=== PATIENT | male | born 1935 | race African-American/Black ===

== ENCOUNTER → 2017-06-30 | Outpatient (CLI) | payer MEDICARE ==
[~2017-06-30] MED LIST: ACTOS30 MG PO; AUGMENTIN 875 M1 TAB PO; CARTIA XT120 MG PO; CYCLOBENZAPRINE10 MG PO; DILTIAZEM CD120 MG PO; DILTIAZEM HCL120 M3 PO; DILTIAZEM120 MG PO; FINASTERIDE5 MG PO; HYDROCODONE BIT1 T11 PO; JALYN PO; JANUVIA50 MG PO; KEFLEX500 MG PO; LEVOTHYROXIN0.075 MG PO; LIPITOR40 MG PO; LISINOPRIL5 MG PO; MECLIZINE25 MG PO; OMEPRAZOLE DR20 MG PO; OMEPRAZOLE20 MG PO; OMEPRAZOLE40 MG PO; OSCAL,OYSTER S500 MG PO; OYSTER SHELL CA1 TA5 PO; PLAVIX75 MG PO; POTASSIUM CHLOR8 MEQ PO; PRILOSEC20 MG PO; PROSCAR5 MG PO; ROBITUSSIN AC 110 ML PO; SIMVASTATIN80 MG PO; SYNTHROID,LEVO88 MCG PO; TRAMADOL HYDROC50 MG PO; TRAMADOL50 MG PO; ULTRAM50 MG PO; VICODIN 5/500 505 MG PO; ZANTAC150 MG PO; ZETIA10 MG PO; [UNRECOGNIZED DRUG - REMARK]
== END | disposition home or self-care (01) ==
LOC: RAD 10:26
DX: J44.9 Chronic obstructive pulmonary disease, unspecified (principal); I25.10 Atherosclerotic heart disease of native coronary artery without angina pectoris; K21.9 Gastro-esophageal reflux disease without esophagitis; E11.9 Type 2 diabetes mellitus without complications

== ENCOUNTER → 2017-07-10 | Outpatient (CLI) | payer MEDICARE | END | disposition home or self-care (01) | LOC: RAD 07:43 | DX: R13.13 Dysphagia, pharyngeal phase (principal) ==

== ENCOUNTER 2017-12-22 11:27 | Inpatient (IN) | payer MEDICARE ==
[~2017-12-22] VITALS: Ht 180.3 cm; Wt 77.2 kg
--- NOTE | ~2017-12-22 | CON ---
[place], [place] REPORT OF CONSULTATION NAME: REILLY LAUREN JR UNIT #: [id number] ROOM: 426 DOCTOR: MARCIN CASTRO MD BIRTHDATE: [birth year] DOS: 12/24/2017 PULMONARY CONSULTATION, EVALUATION, AND INGOT PASSER PHYSICIAN: Dr. Oliverio Andres. REASON FOR CONSULTATION: Assess the patient's current abnormal finding CT scan of chest and shortness of breath. HISTORY OF PRESENT ILLNESS: The patient independently seen and examined, [id number] encounter today for this consultation. The medical records were reviewed. All the imaging studies were also personally reviewed as well. Assessment and management was personally completed for today's visit. Note done by the medical reimbursement specialist was approved as well. An 82-year-old white man who presented to the Emergency Room as he wanted to get checked out as the patient was complaining of symptoms of shortness of breath after acute cold symptoms for the past few days. The symptoms have been noted progressive and nonresolving. The patient does have mild cough without any sputum expectoration and complaining of symptoms of shortness of breath with exertion. Denies symptoms of chest pain with that. Denied symptoms of fever or chills or wheezing. The patient has been assessed in the Emergency Room and has been hospitalized under care of Dr. Oliverio Andres. REVIEW OF SYSTEMS: CONSTITUTIONAL SYMPTOMS: The patient was denying any symptoms of fever or chills at home. EYES: Denies any burning in the eyes, redness or tenderness or discharge. EARS, NOSE, THROAT SYMPTOMS: Denies sore throat, hoarseness, otalgia, postnasal drainage or epistaxis. CARDIOVASCULAR SYSTEM: No anginal pain, edema, pain in lower extremities, symptoms of orthopnea. GASTROINTESTINAL: Dysphagia, nausea, vomiting, diarrhea, abdominal pain, hematemesis, melena, hematochezia. SKIN: No abnormal lesions or rashes. MUSCULOSKELETAL: No acute joint pain, redness, or tenderness. SKIN: Denies lesions or rashes. CENTRAL NERVOUS SYSTEM: Denies symptoms of seizures, history of migraines or tingling sensation of the extremities. Remaining systems were reviewed. They were noted all negative. PAST MEDICAL HISTORY: 1. Coronary artery disease. 2. Chronic kidney disease stage 3 reported. 3. Type 2 diabetes mellitus. 4. Essential hypertension. 5. Hyperlipidemia. 6. Hypothyroidism. 7. Gastroesophageal reflux. [place], [place] REPORT OF CON[facility]ULTATION [id number] UN[facility] #: [id number] ROOM: 426 DOCTOR: MARCIN CASTRO MD BIRTHDATE: [birth year] SOCIAL HISTORY: The patient noted nonsmoker lifetime. History of alcohol use, illicit drug use. 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 FAMILY HISTORY: His father at age of 60 plus years old, information was not known to cause . Mother , elderly at the age of 9090 years old. MEDICATIONS: From home were listed as use of Norvasc, aspirin, Lipitor, Os-Faisal, finasteride, Vicodin, levothyroxine, Tradjenta, Claritin, nitroglycerin, omeprazole, Senokot and others. DRUG ALLERGY HISTORY: The patient noted with no known drug allergies. PHYSICAL EXAMINATION: GENERAL: This is an 82-year-old white male who has been noted currently comfortably sitting on the bed, noted without any acute distress. Height of 5 feet 11 inches, weight of 170 pounds, BMI 23.7. VITAL SIGNS: For the patient recorded normal temperature, respiratory rate 18-16, heart rate of 86-62, blood pressure 134/70-116/88. The pulse oxygen saturation noted 96% saturation with the nasal cannula. HEAD, EYES, EARS, NOSE, AND THROAT: Shows head was atraumatic. Eyes nonicterus. NECK: Supple. CARDIOVASCULAR SYSTEM: S1, S2 audible. LUNGS: Noted without any wheezing or crackles at the present time. ABDOMEN: Soft, flat, nontender, bowel sounds present. EXTREMITIES: No acute edema. There was no clubbing or cyanosis noted. VISIBLE SKIN: No lesions or rashes. MUSCULOSKELETAL: Without any gross deformities. CENTRAL NERVOUS SYSTEM: Cranial nerves 2-12 intact. No focal deficit. LABORATORY AND DIAGNOSTIC DATA: Lactic acid on 12/22/2017 were normal. CBC on admission was essentially noted as normal. PT/PTT were noted normal on 12/22/2017. CMP on admission, BUN 28, creatinine 2.09. Remaining electrolytes and the CK-MB, troponin normal. Blood culture done on the 6th showed no bacterial growth. The renal function panel today was noted BUN 24, creatinine 1.72, glucose of 96. The chest x-ray that was done on admission was noted without any acute visible abnormalities. Previous x-rays reviewed dating back as 2003 noted without any acute pulmonary abnormalities. CT scan of chest was reviewed, shows early honeycombing. The patient was noted in the mid and lower portion of the lungs in the periphery with a 3 mm nodule was noted in the left upper lobe. IMPRESSION: 1. The patient will be currently admitted to the hospital noted with the current symptoms of shortness of breath with acute cold symptoms started initially, at this time does not have any ongoing acute pulmonary disease causing current symptom. Possibility of interstitial lung disease, honeycombing would be considered in the differential diagnosis and require further assessment [place], [place] REPORT OF CONSULTATION NAME: REILLY LAUREN JR UNIT #: [id number] ROOM: 426 DOCTOR: NICK CHAPMAN MD,MARCIN BIRTHDATE: [birth year] as an outpatient assessment. 2. Medication use for allergic rhinitis were also noted. Incidental finding of a 3 mm nodule of no clinical significance in the left upper lobe as well. 3. History of coronary artery disease already being assessed by the Cardiology Service has not noted with any ongoing acute cardiac illness, which required any further attention. 4. Resolution acute on chronic injury noted and may be related to the prerenal in origin with improvement in creatinine noted, but 2.09 to 1.7. 5. History of type 2 diabetes mellitus. PLAN OF TREATMENT: From the pulmonary standpoint, no acute intervention will be needed or any suggestion medication to be started on this hospitalization. Outpatient assessment will be recommended prior to making any further suggestion and treatment planning for the current interstitial lung disease. Other supportive therapy, plan of management and care plan. MARCIN ROMERO MD CM:CONSTR:REPORT OF CONSULTATION 1155 12/24/17 0308 interface
--- NOTE | ~2017-12-22 | CON ---
[place], [place] REPORT OF CONSULTATION NAME[id number] UNIT #: [id number] ROOM: 426 DOCTOR: AMANDA SCHULTZ DO BIRTHDATE: [birth year] DOS: 12/24/2017 PULMONOLOGY CONSULTATION REQUEST REASON FOR CONSULTATION: Shortness of breath upon walking with a chest CT with lung nodule. HISTORY OF PRESENT ILLNESS: The patient is an 82-year-old male with progressively worsening shortness of breath for around 4-5 weeks. The patient states that he gets short of breath when walking any amount of time. The patient reports that he had never had this problem before and decided to come to the hospital to get it checked out. The patient denies any other symptoms including chest pain, nausea, vomiting, diarrhea, constipation, urinary complaints, lower extremity edema, or any cough or wheezing. The patient was seen and evaluated in the ER initially and had a chest x-ray that showed cardiomegaly with emphysematous changes, although the patient denies any history of smoking. The patient was admitted for further workup. The patient also while inpatient had an echo and stress test performed. PAST MEDICAL HISTORY: The patient has a past medical history of coronary artery disease, chronic kidney disease stage 3, diabetes mellitus type 2, hypertension, GERD, hyperlipidemia, hypothyroidism, myocardial infarction. PAST SURGICAL PROBLEMS: History of cholecystectomy. SOCIAL HISTORY: The patient does not smoke, drink or use recreational drugs. 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 FAMILY HISTORY: Father is at age 60, unknown cause. Mother is also , unsure of age and cause. ALLERGIES: No known drug allergies. CURRENT MEDICATIONS: Amlodipine 10 mg daily, aspirin 81 mg daily, atorvastatin 40 mg daily, calcium carbonate 500 mg 3 times a day, cromolyn sodium nasal allergy spray twice daily, Proscar 5 mg daily, hydrocodone with acetaminophen 325/5 one tablet q. 6 hours, Synthroid 125 mcg daily, Tradjenta 5 mg daily, Claritin 10 mg daily, magnesium oxide 400 mg daily, Nitrostat 0.4 mg sublingual p.r.n. chest pain, omeprazole 20 mg b.i.d., Senokot 8.6 mg daily. REVIEW OF SYSTEMS: GENERAL: The patient denies fevers, chills, weight loss, or weight gain. HEENT: The patient denies any vision changes, trouble swallowing, nasal discharge, or any ear pain or ear discharge. CARDIOVASCULAR: The patient denies chest pain, palpitations, or lower extremity edema. Denies diaphoresis. RESPIRATORY: The patient reports shortness of breath and dyspnea on exertion. Denies any cough, hemoptysis, wheezing, or any other respiratory symptoms. GASTROINTESTINAL: Denies abdominal pain, nausea, vomiting, diarrhea, [place], [place] REPORT OF CONSULTATION NAME: REILLY LAUREN JR UNIT #: [id number] ROOM: 426 DOCTOR: AMANDA SCHULTZ DO BIRTHDATE: [birth year] constipation, or any blood in the stool. GENITOURINARY: The patient denies dysuria, hematuria, frequency or urgency. NEUROLOGIC: The patient denies lightheadedness, dizziness or confusion. PSYCHIATRIC: The patient denies depression or anxiety. ENDOCRINE: The patient denies any heat or cold intolerance. SKIN: The patient denies any new rashes, lesions, or ulcers. PHYSICAL EXAMINATION: VITAL SIGNS: Temperature of 98.0, pulse of 86, respiratory rate 18, blood pressure 116/88, and the patient is 97% on room air. GENERAL APPEARANCE: Awake, alert, in no acute distress, responsive, cooperative. HEAD: Normocephalic, atraumatic. EYES: PERRLA. No ulcerations or drainage. ENT: No lesions, no scars, no masses. NECK: Without lesions or masses. Supple. HEART: Regular rate and rhythm with S4 gallop. No edema in the lower extremities. LUNGS: Normal breath sounds bilaterally. ABDOMEN: Soft, bowel sounds present, nontender, nondistended. EXTREMITIES: No clubbing, cyanosis, erythema, or edema. NEUROLOGIC: Intact without focal neurological deficits. Normal mood and affect. SKIN: Warm and dry. No acute rashes, lesions, or ulcerations. LABORATORY TESTS: CBC showed mild anemia with hemoglobin of 12.4, hematocrit of 39.8, and mild thrombocytopenia with platelet count of 128. Coagulation panel within normal limits and BMP revealed chronic kidney disease with GFR of approximately 46. DIAGNOSTIC IMAGING: Chest x-ray in the ER showed stable cardiomegaly, emphysematous pulmonary configuration of COPD, stable chest. Chest CT revealed a 3 mm ground glass noncalcified nodule in the left upper lobe with subpleural fibrosis and early home honeycombing at the lung bases bilaterally. The patient also had a stress test, which was within normal limits. ASSESSMENT: 1. Dyspnea on exertion. 2. Hypertension. 3. Hypothyroidism. 4. Hyperlipidemia. 5. Coronary artery disease. 6. Acid reflux. 7. Chronic kidney disease. 8. Diabetes mellitus. TREATMENT PLAN: The patient was admitted with dyspnea on exertion. Cardiac causes have been ruled out at this time. The patient would benefit from outpatient evaluation of early COPD/honeycombing of the lower parts of the lung, found on CT. Lab work is insignificant for any signs of infection at this time. [place], [place] REPORT OF CONSULTATION NAME: REILLY LAUREN JR UNIT #: [id number] ROOM: 426 DOCTOR: AMANDA SCHULTZ DO BIRTHDATE: [birth year] The patient can be scheduled for followup with Dr. Romero within the next coming month. The patient is stable for discharge from Pulmonology standpoint. Amanda Schultz DO MARCIN ROMERO MD CM:CONSTR:REPORT OF CONSULTATION 1124 01/01/18 0803 interface
--- NOTE | ~2017-12-22 | EKG ---
[place], [place] ELECTROCARDIOGRAM REPORT NAME: REILLY LAUREN JR UNIT #: [id number] ROOM: 426 DOCTOR: YULISA DRAFT REPORT BIRTHDATE: [birth year] [facility] Test Date: 2017-12-22 Test Time: 11:46:30 Pat Name: REILLY LAUERN Department: Room: 426 Gender: M Proof Technician: Mer Jeff : [id number] Requested By: CLARIBEL CASTILLO Order Number: [id number] Reading MD: Marlen Barreto MD Measurements Intervals [place] Rate: 95 P: 20 IN: 181 QRS: -61 QRSD: 108 T: 63 QT: 374 QTc: 470 Interpretive Statements Sinus rhythm Multiple ventricular premature complexes Probable left atrial enlargement Left anterior fascicular block Abnormal R-wave progression, late transition Left ventricular hypertrophy Minimal ST elevation, lateral leads Electronically Signed On 12-24-2017 14:28:42 PST by Marlen Barreto MD CM:EKGRPT:ELECTROCARDIOGRAM REPORT [id number] CLARIBEL MIGUEL DRAFT REPORT CLARIBEL CASTILLO DO
[2017-12-22 11:29] VITALS: BP 127/87
[2017-12-22 12:08] LABS: BASO % 0.3 % (0.0-1.0); EOS # 0.1 10*3/uL (0.0-0.4); HEMATOCRIT 41.4 % (42.0-52.0); LYMPH # 2.3 10*3/uL (1.3-4.4); LYMPH % 39.2 % (27.0-41.0); MEAN CELL VOLUME 83.5 fl (80.0-94.0); MEAN CORPUSCULAR HGB 26.2 pg (27.0-31.0); MEAN CORPUSCULAR HGB CONC 31.4 g/dl (33.0-37.0); MEAN PLATELET VOLUME 11.5 fl (9.6-12.3); MONO # 0.6 10*3/uL (0.1-1.0); MONO % 9.7 % (3.0-9.0); NEUT # 2.9 10*3/uL (2.3-7.9); NEUT % 48.6 % (47.0-73.0); PLATELET COUNT AUTOMATED 156 10*3/uL (130-400); RED BLOOD COUNT 4.96 10*6/uL (4.50-5.90); RED CELL DISTRI WIDTH 15.8 % (0-14.5); WHITE BLOOD COUNT 5.9 10*3/uL (4.8-10.8)
[2017-12-22 12:17] LABS: ACT PARTIAL THROMBO TIME 28.7 SECONDS (20.8-31.5); INTERNATIONAL NORM RATIO 1.1 (2.0-3.5)
[2017-12-22 12:23] LABS: ALBUMIN 3.5 gm/dl (3.1-4.5); ALKALINE PHOSPHATASE 68 U/L (45-117); BUN 28 mg/dl (7-24); CHLORIDE 109 mmol/L (98-107); CREATININE 2.09 mg/dL (0.70-1.30); LIPASE 377 U/L (73-393); POTASSIUM 4.1 mmol/L (3.5-5.1); SGOT/AST 25 IU/L (3-35); SGPT/ALT 24 U/L (12-78); SODIUM 139 mmol/L (136-145); TOTAL PROTEIN 7.7 gm/dL (6.4-8.2)
[2017-12-22 12:24] LABS: TROPONIN I < 0.015 ng/ml (<0.045)
[2017-12-22 13:20] LABS: BILIRUBIN NEGATIVE (NEGATIVE); BLOOD NEGATIVE (NEGATIVE); CLARITY CLEAR (CLEAR); COLOR YELLOW (YELLOW); GLUCOSE NEGATIVE (NEGATIVE); KETONE NEGATIVE (NEGATIVE); LEUKO ESTERASE NEGATIVE (NEGATIVE); NITRITE NEGATIVE (NEGATIVE); PH 5.5 (5.0-9.0); UROBILINOGEN 0.2 E.U./dl (0.2-1.0)
[2017-12-22 13:30] LABS: EPITHELIAL CELLS 0-2; MUCOUS 1+; RBC 0-2 rbc/hpf (0-2)
[2017-12-22 14:11] VITALS: BP 150/84
[2017-12-22 14:35] VITALS: BP 128/76
[2017-12-22] MEDS ORDERED: Oscal,Oyster S500 MG PO (15:58)
[2017-12-22 16:00] VITALS: BP 154/83
[2017-12-22] MEDS ORDERED: SENOKOT PO (16:00)
[2017-12-22] MEDS ORDERED: MAG-OXIDE200 MG PO (16:02)
[2017-12-22] MEDS ORDERED: ASPIR LOW81 MG PO (16:02)
[2017-12-22] MEDS ORDERED: TRAD5TAB1 PO (16:04)
[2017-12-22] MEDS ORDERED: NASAL ALLERGY S13 ML NAS (16:05)
[2017-12-22] MEDS ORDERED: SYNTHROID,LEV125 MCG PO (16:06)
[2017-12-22] MEDS ORDERED: CLARITIN10 MG PO (16:06)
[2017-12-22] MEDS ORDERED: NITROSTAT0.4 MG SL (16:08)
[2017-12-22] MEDS ORDERED: NORVASC10 MG PO (16:12)
[2017-12-22 20:00] VITALS: BP 147/66
[2017-12-23] VITALS: BP 134/61
[2017-12-23 06:27] LABS: BASO % 0.4 % (0.0-1.0); EOS # 0.2 10*3/uL (0.0-0.4); EOS % 3.4 % (1.0-4.0); HEMATOCRIT 39.8 % (42.0-52.0); HEMOGLOBIN 12.4 g/dl (14.0-18.0); LYMPH % 41.1 % (27.0-41.0); MEAN CELL VOLUME 84.1 fl (80.0-94.0); MEAN CORPUSCULAR HGB 26.2 pg (27.0-31.0); MEAN CORPUSCULAR HGB CONC 31.2 g/dl (33.0-37.0); MEAN PLATELET VOLUME 11.9 fl (9.6-12.3); MONO # 0.5 10*3/uL (0.1-1.0); MONO % 9.6 % (3.0-9.0); NEUT # 2.2 10*3/uL (2.3-7.9); NEUT % 45.3 % (47.0-73.0); PLATELET COUNT AUTOMATED 128 10*3/uL (130-400); RED BLOOD COUNT 4.73 10*6/uL (4.50-5.90); RED CELL DISTRI WIDTH 15.8 % (0-14.5); WHITE BLOOD COUNT 4.8 10*3/uL (4.8-10.8)
[2017-12-23 06:45] LABS: ALBUMIN 3.3 gm/dl (3.1-4.5); CREATININE 1.65 mg/dL (0.70-1.30); FREE T4 1.95 ng/dl (0.76-1.46); POTASSIUM 3.8 mmol/L (3.5-5.1); TOTAL PROTEIN 7.3 gm/dL (6.4-8.2)
[2017-12-23 06:50] LABS: THYROID STIM HORMONE (HS) 0.005 uIU/ml (0.358-4.75)
[2017-12-23 08:00] VITALS: BP 140/80
[2017-12-23 10:34] LABS: VITAMIN D, 25-HYDROXY 30.4 ng/mL (30-100)
[2017-12-23 12:00] VITALS: BP 129/72
[2017-12-23 12:11] LABS: URINE CREATININE RANDOM 45.3 mg/dL
[2017-12-23 16:00] VITALS: BP 139/64
[2017-12-23 20:00] VITALS: BP 122/56
[2017-12-24] VITALS: BP 134/73
[2017-12-24 06:35] LABS: ALBUMIN 3.4 gm/dl (3.1-4.5); CREATININE 1.72 mg/dL (0.70-1.30); PHOSPHOROUS 3.4 mg/dL (2.5-4.9); POTASSIUM 3.8 mmol/L (3.5-5.1)
[2017-12-24 08:00] VITALS: BP 116/88
[2017-12-24 12:00] VITALS: BP 119/65
[2017-12-24] MEDS ORDERED: SYNTHROID,LEVO75 MCG PO (14:46)
[2017-12-25 10:10] LABS: CREATININE,URINE 31.8 mg/dL (Not Estab.); MICRO ALBUMIN/CRE RATIO 266.4 (0.0-30.0)
== END 2017-12-24 15:22 | disposition home or self-care (01) | DRG 684 ==
LOC: ED 11:27 → 4E 13:31 → EDHOLD 13:31 → 4E 14:02
PROVIDERS: Emergency Medicine; Internal Medicine; Internal Medicine Nephrology
PROC: 4A02XM4 Measurement of Cardiac Total Activity, External Approach (ICD-10-PCS; principal; 2017-12-23)
PROC: 3E073KZ Introduction of Other Diagnostic Substance into Coronary Artery, Percutaneous Approach (ICD-10-PCS; principal; 2017-12-23)
DX: N17.9 Acute kidney failure, unspecified (principal); J84.10 Pulmonary fibrosis, unspecified; N25.81 Secondary hyperparathyroidism of renal origin; I25.10 Atherosclerotic heart disease of native coronary artery without angina pectoris; E03.9 Hypothyroidism, unspecified; E78.5 Hyperlipidemia, unspecified; I13.10 Hypertensive heart and chronic kidney disease without heart failure, with stage 1 through stage 4 chronic kidney disease, or unspecified chronic kidney disease; K21.9 Gastro-esophageal reflux disease without esophagitis; E11.22 Type 2 diabetes mellitus with diabetic chronic kidney disease; J30.9 Allergic rhinitis, unspecified; I27.20 Pulmonary hypertension, unspecified; N18.3 Chronic kidney disease, stage 3 (moderate); N40.0 Benign prostatic hyperplasia without lower urinary tract symptoms; D64.9 Anemia, unspecified; R91.1 Solitary pulmonary nodule; G89.29 Other chronic pain; M54.9 Dorsalgia, unspecified; I25.2 Old myocardial infarction; Z90.49 Acquired absence of other specified parts of digestive tract; Z79.82 Long term (current) use of aspirin; Z79.899 Other long term (current) drug therapy

== ENCOUNTER → 2018-02-12 | Day surgery (SDC) | payer MEDICARE ==
[~2018-02-12] VITALS: Ht 180.3 cm; Wt 78.9 kg
[~2018-02-12] MED LIST changes: +ASPIR LOW81 MG PO; +CLARITIN10 MG PO; +MAG-OXIDE200 MG PO; +NASAL ALLERGY S13 ML NAS; +NITROSTAT0.4 MG SL; +NORVASC10 MG PO; +Oscal,Oyster S500 MG PO; +SENOKOT PO; +SYNTHROID,LEV125 MCG PO; +SYNTHROID,LEVO75 MCG PO; +TRAD5TAB1 PO
--- NOTE | ~2018-02-12 | O ---
[place], [place] OPERATIVE NOTE NAME: REILLY LAUREN JR UNIT #: [id number] ROOM: DOCTOR: JANIE WHITESIDE MD BIRTHDATE: [birth year] DOS: 02/12/2018 GASTROENDOSCOPIC REPORT HISTORY OF PRESENT ILLNESS: An 82-year-old patient who has presented with chief complaint of dysphagia, undergoing investigation. ALLERGIES: No known medication. FAMILY HISTORY: Noncontributory. PAST SURGICAL HISTORY: Noncontributory. PAST MEDICAL HISTORY: Hypertension, hypercholesterolemia, hypothyroidism, diabetes. PROCEDURE: Today's procedure part of investigation is panendoscopy plus esophageal balloon dilation to size 18 and gastritis, biopsy. PREMEDICATION: Propofol. SCOPE: Olympus forward-viewing gastroscope Q10 video. REPORT: After putting the patient in left lateral position and application of lubricant to the scope, the scope was introduced. Thereafter, under direct visualization, advanced through the length of esophagus without difficulty. Benign stricture of esophagus was noticed. Gastric pouch was entered. Gastritis identified. Antral biopsy obtained. Duodenal bulb, second and third part within normal limits. Scope was withdrawn back to the mid gastric pouch. Balloon size 18 was used and esophagus distal and upper were both dilated to size 18. The patient extubated, tolerated the procedure well. IMPRESSION: Benign esophageal stricture, status post balloon dilation to size 18, gastritis. He is going to start his medication back and his regular diet. ACTIVITY: Ad caryl. FOLLOWUP: Routinely with you in office and in 2 weeks with us in GI Clinic. [place], [place] OPERATIVE NOTE NAME: REILLY LAUREN JR UNIT #: [id number] ROOM: DOCTOR: JANIE WHITESIDE MD BIRTHDATE: [birth year] JANIE WHITESIDE MD CM:OPRECORD:OPERATIVE NOTE [id number] [id number] JANIE WHITESIDE MD 02/24/18 0723 interface
[2018-02-12 12:07] VITALS: BP 160/91
[2018-02-12 13:48] VITALS: BP 130/79
[2018-02-12 14:04] VITALS: BP 141/68
[2018-02-12 14:20] VITALS: BP 140/70
== END | disposition home or self-care (01) ==
LOC: SDC 02-08 09:30
DX: K22.2 Esophageal obstruction (principal); K29.50 Unspecified chronic gastritis without bleeding; I10 Essential (primary) hypertension; E78.00 Pure hypercholesterolemia, unspecified; E03.9 Hypothyroidism, unspecified; E11.9 Type 2 diabetes mellitus without complications; K21.9 Gastro-esophageal reflux disease without esophagitis; I25.2 Old myocardial infarction; I25.10 Atherosclerotic heart disease of native coronary artery without angina pectoris; Z90.49 Acquired absence of other specified parts of digestive tract; Z98.890 Other specified postprocedural states; Z87.442 Personal history of urinary calculi; Z79.82 Long term (current) use of aspirin; Z79.899 Other long term (current) drug therapy; Z82.49 Family history of ischemic heart disease and other diseases of the circulatory system

== ENCOUNTER → 2018-04-16 | Outpatient (CLI) | payer MEDICARE | END | disposition home or self-care (01) | LOC: US 13:32 | DX: N28.1 Cyst of kidney, acquired (principal); N18.3 Chronic kidney disease, stage 3 (moderate) ==

== ENCOUNTER → 2018-10-21 | Outpatient (CLI) | payer MEDICARE | END | disposition home or self-care (01) | LOC: CARD 14:00 | DX: I08.1 Rheumatic disorders of both mitral and tricuspid valves (principal); R06.02 Shortness of breath ==

== ENCOUNTER → 2019-07-29 | Outpatient (CLI) | payer MEDICARE | END | disposition home or self-care (01) | LOC: RAD 14:29 | DX: M25.531 Pain in right wrist (principal) ==

== ENCOUNTER → 2019-09-28 | Outpatient (CLI) | payer MEDICARE ==
--- NOTE | 2019-09-28 10:53 | NUR ---
PATIENT EVALUTED FOR HOME O2. UNABLE TO GET A GOOD READING ON PATIENTS HANDS. A GOOD READING WAS ACHIEVED ON PATIENTS EAR. SPO2 100% HR 97 B/P 146/78 ON ROOM AIR. DURING AMBULATION SPO2 RANGED FROM 98%-100% HR 108. PATIENT WAS UNABLE TO COMPLETE WALK DUE TO COMPLAINTS OF SOB. PATIENT PLACED IN WHEEL CHAIR. POST AMBULATION AT REST SPO2 REMAINED AT 98% OR GREATER, HR 106 BP 156/86.
--- NOTE | 2019-09-29 13:47 | NUR ---
DAMPER FITTER ACCESSED CHART TO OBTAIN PHONE NUMBER A CURRENT PATIENT HAS THIS PATIENT LISTED A CONTACT WITH A DISCONNECTED NUMBER.
== END | disposition home or self-care (01) ==
LOC: LAB 10:22
DX: E03.9 Hypothyroidism, unspecified (principal); J44.9 Chronic obstructive pulmonary disease, unspecified

== ENCOUNTER 2020-03-03 17:27 | Inpatient (IN) | payer MEDICARE ==
[~2020-03-03] VITALS: Ht 180 cm; Wt 67.4 kg
[~2020-03-03 17:27] MED LIST changes: +OMEPRAZOLE MAGN20 MG PO; -OMEPRAZOLE20 MG PO
[2020-03-03 17:45] VITALS: BP 202/112
[2020-03-03 18:12] VITALS: BP 208/138
[2020-03-03 18:24] LABS: BASO % 0.4 % (0.0-1.0); EOS # 0.1 10*3/uL (0.0-0.4); EOS % 1.6 % (1.0-4.0); HEMATOCRIT 46.7 % (42.0-52.0); LYMPH # 1.5 10*3/uL (1.3-4.4); MEAN CELL VOLUME 88.6 fl (80.0-94.0); MEAN CORPUSCULAR HGB 27.1 pg (27.0-31.0); MEAN CORPUSCULAR HGB CONC 30.6 g/dl (33.0-37.0); MEAN PLATELET VOLUME 11.8 fl (9.6-12.3); MONO # 0.5 10*3/uL (0.1-1.0); MONO % 10.5 % (3.0-9.0); NEUT # 2.8 10*3/uL (2.3-7.9); NEUT % 56.3 % (47.0-73.0); PLATELET COUNT AUTOMATED 140 10*3/uL (130-400); RED BLOOD COUNT 5.27 10*6/uL (4.50-5.90); RED CELL DISTRI WIDTH 18.8 % (0-14.5)
[2020-03-03 18:29] LABS: BILIRUBIN Negative (Negative); BLOOD 1+ (Negative); CLARITY Clear (Clear); COLOR Yellow (Yellow); GLUCOSE Negative (Negative); KETONE Negative (Negative); LEUKO ESTERASE Negative (Negative); NITRITE Negative (Negative); SPECIFIC GRAVITY 1.015 (1.001-1.030)
[2020-03-03 18:33] LABS: CREATININE 1.66 mg/dL (0.70-1.30); POTASSIUM 3.9 mmol/L (3.5-5.1)
[2020-03-03 18:39] LABS: BACTERIA TRACE
[2020-03-03 18:39] LABS: ACT PARTIAL THROMBO TIME 29.4 SECONDS (20.0-32.1); INTERNATIONAL NORM RATIO 1.1 (2.0-3.5)
[2020-03-03 19:02] VITALS: BP 176/110
[2020-03-03 19:29] VITALS: BP 155/88
[2020-03-03 19:34] LABS: THYROID STIM HORMONE (HS) 7.23 uIU/ml (0.358-4.75)
[2020-03-03 20:47] VITALS: BP 172/103
[2020-03-03 21:39] VITALS: BP 153/97
[2020-03-04] VITALS (10 sets, daily range): BP systolic 102–182; BP diastolic 58–113
[2020-03-04 06:10] LABS: CREATININE 1.54 mg/dL (0.70-1.30); POTASSIUM 3.6 mmol/L (3.5-5.1)
[2020-03-04 06:20] LABS: BASO % 0.4 % (0.0-1.0); EOS # 0.1 10*3/uL (0.0-0.4); EOS % 1.9 % (1.0-4.0); HEMATOCRIT 41.6 % (42.0-52.0); LYMPH # 1.5 10*3/uL (1.3-4.4); LYMPH % 29.8 % (27.0-41.0); MEAN CELL VOLUME 87.2 fl (80.0-94.0); MEAN CORPUSCULAR HGB 27.3 pg (27.0-31.0); MEAN CORPUSCULAR HGB CONC 31.3 g/dl (33.0-37.0); MEAN PLATELET VOLUME 12.1 fl (9.6-12.3); MONO # 0.7 10*3/uL (0.1-1.0); MONO % 12.7 % (3.0-9.0); NEUT # 2.8 10*3/uL (2.3-7.9); PLATELET COUNT AUTOMATED 126 10*3/uL (130-400); RED BLOOD COUNT 4.77 10*6/uL (4.50-5.90); RED CELL DISTRI WIDTH 18.5 % (0-14.5); WHITE BLOOD COUNT 5.1 10*3/uL (4.8-10.8)
[2020-03-05] VITALS: BP 164/93
[2020-03-05 07:06] LABS: BASO % 0.3 % (0.0-1.0); EOS # 0.1 10*3/uL (0.0-0.4); EOS % 1.7 % (1.0-4.0); HEMATOCRIT 43.2 % (42.0-52.0); LYMPH # 1.4 10*3/uL (1.3-4.4); LYMPH % 21.7 % (27.0-41.0); MEAN CELL VOLUME 85.7 fl (80.0-94.0); MEAN CORPUSCULAR HGB CONC 31.5 g/dl (33.0-37.0); MEAN PLATELET VOLUME 11.7 fl (9.6-12.3); MONO # 0.6 10*3/uL (0.1-1.0); MONO % 9.4 % (3.0-9.0); NEUT # 4.4 10*3/uL (2.3-7.9); NEUT % 66.6 % (47.0-73.0); PLATELET COUNT AUTOMATED 125 10*3/uL (130-400); RED BLOOD COUNT 5.04 10*6/uL (4.50-5.90); RED CELL DISTRI WIDTH 18.3 % (0-14.5); WHITE BLOOD COUNT 6.6 10*3/uL (4.8-10.8)
[2020-03-05 07:29] LABS: POTASSIUM 3.7 mmol/L (3.5-5.1)
[2020-03-05 07:39] LABS: CREATININE 1.38 mg/dL (0.70-1.30)
[2020-03-05 08:00] VITALS: BP 160/84
[2020-03-05 12:00] VITALS: BP 164/78
[2020-03-05 16:00] VITALS: BP 160/66
[2020-03-05 20:00] VITALS: BP 137/86
[2020-03-06] VITALS: BP 138/80
[2020-03-06 08:00] VITALS: BP 142/86
[2020-03-06 08:23] LABS: VITAMIN D, 25-HYDROXY 25.2 ng/mL (30-100)
[2020-03-06 08:24] LABS: PTH INTACT 38.3 pg/mL (18.5-88.0)
[2020-03-06 10:09] LABS: CREATININE,URINE 142.9 mg/dL (Not Estab.)
[2020-03-06 16:00] VITALS: BP 144/79
[2020-03-06 20:00] VITALS: BP 143/81
[2020-03-07] VITALS: BP 131/81
[2020-03-07 06:54] LABS: BASO % 0.3 % (0.0-1.0); EOS # 0.1 10*3/uL (0.0-0.4); EOS % 1.6 % (1.0-4.0); HEMATOCRIT 41.8 % (42.0-52.0); LYMPH # 1.3 10*3/uL (1.3-4.4); LYMPH % 21.3 % (27.0-41.0); MEAN CELL VOLUME 87.8 fl (80.0-94.0); MEAN CORPUSCULAR HGB 27.7 pg (27.0-31.0); MEAN CORPUSCULAR HGB CONC 31.6 g/dl (33.0-37.0); MEAN PLATELET VOLUME 12.2 fl (9.6-12.3); MONO # 0.9 10*3/uL (0.1-1.0); MONO % 15.4 % (3.0-9.0); NEUT # 3.7 10*3/uL (2.3-7.9); NEUT % 61.1 % (47.0-73.0); PLATELET COUNT AUTOMATED 131 10*3/uL (130-400); RED BLOOD COUNT 4.76 10*6/uL (4.50-5.90); RED CELL DISTRI WIDTH 18.4 % (0-14.5); WHITE BLOOD COUNT 6.1 10*3/uL (4.8-10.8)
[2020-03-07 07:12] LABS: CREATININE 1.66 mg/dL (0.70-1.30); POTASSIUM 3.8 mmol/L (3.5-5.1)
[2020-03-07 08:00] VITALS: BP 146/90
[2020-03-07 12:00] VITALS: BP 134/83
[2020-03-07 16:00] VITALS: BP 124/67
[2020-03-07 20:00] VITALS: BP 121/80
[2020-03-08] VITALS: BP 138/75
[2020-03-08 05:30] VITALS: BP 136/82
[2020-03-08 06:59] LABS: CREATININE 1.8 mg/dL (0.70-1.30); POTASSIUM 3.8 mmol/L (3.5-5.1)
[2020-03-08 12:00] VITALS: BP 132/68
[2020-03-08 16:00] VITALS: BP 129/77
== END 2020-03-08 18:29 | disposition other institution (70) | DRG 280 ==
LOC: ED 17:27 → EDHOLD 18:25 → 5E 18:25
PROVIDERS: Emergency Medicine; Internal Medicine Nephrology; Student in an Organized Health Care Education/Training Program; ADMIT Internal Medicine; ATTEND Internal Medicine
PROC: 4A02XM4 Measurement of Cardiac Total Activity, External Approach (ICD-10-PCS; principal; 2020-03-06)
PROC: 3E073KZ Introduction of Other Diagnostic Substance into Coronary Artery, Percutaneous Approach (ICD-10-PCS; 2020-03-06)
DX: I16.0 Hypertensive urgency (principal); I21.A1 Myocardial infarction type 2; N17.0 Acute kidney failure with tubular necrosis; I67.4 Hypertensive encephalopathy; G45.9 Transient cerebral ischemic attack, unspecified; E55.9 Vitamin D deficiency, unspecified; K21.9 Gastro-esophageal reflux disease without esophagitis; E11.22 Type 2 diabetes mellitus with diabetic chronic kidney disease; N18.30 Chronic kidney disease, stage 3 unspecified; Z20.822 Contact with and (suspected) exposure to COVID-19; I12.9 Hypertensive chronic kidney disease with stage 1 through stage 4 chronic kidney disease, or unspecified chronic kidney disease; E03.9 Hypothyroidism, unspecified; I25.10 Atherosclerotic heart disease of native coronary artery without angina pectoris; M54.9 Dorsalgia, unspecified; F03.90 Unspecified dementia, unspecified severity, without behavioral disturbance, psychotic disturbance, mood disturbance, and anxiety; E78.5 Hyperlipidemia, unspecified; G89.29 Other chronic pain

== ENCOUNTER 2020-03-21 04:33 | Emergency (ER) | payer MEDICARE ==
[~2020-03-21] VITALS: Wt 70.3 kg
[2020-03-21 04:34] VITALS: BP 140/85
[2020-03-22] MEDS ORDERED: TRELEGY ELLIPT1 EACH INH (18:45)
[2020-03-22] MEDS ORDERED: LEVOTHYROXINE100 MC1 PO (18:45)
== END 2020-03-21 05:43 | disposition designated cancer center or children's hospital (05) ==
LOC: ED 04:33
DX: S16.1XXA Strain of muscle, fascia and tendon at neck level, initial encounter (principal); Z90.49 Acquired absence of other specified parts of digestive tract; Z87.442 Personal history of urinary calculi; Z98.890 Other specified postprocedural states; Z79.899 Other long term (current) drug therapy; Z79.82 Long term (current) use of aspirin; W18.09XA Striking against other object with subsequent fall, initial encounter; Y93.89 Activity, other specified; Y92.89 Other specified places as the place of occurrence of the external cause; Y99.9 Unspecified external cause status

== ENCOUNTER 2020-03-22 11:32 | Inpatient (IN) | payer MEDICARE ==
[2020-03-22] VITALS (10 sets, daily range): BP systolic 113–136; BP diastolic 73–87
[~2020-03-22] VITALS: Ht 180.3 cm; Wt 68.1 kg
[2020-03-22 11:53] LABS: BASO % 0.1 % (0.0-1.0); EOS % 0.4 % (1.0-4.0); HEMATOCRIT 33.2 % (42.0-52.0); LYMPH # 0.8 10*3/uL (1.3-4.4); LYMPH % 7.5 % (27.0-41.0); MEAN CELL VOLUME 87.6 fl (80.0-94.0); MEAN CORPUSCULAR HGB 27.4 pg (27.0-31.0); MEAN CORPUSCULAR HGB CONC 31.3 g/dl (33.0-37.0); MEAN PLATELET VOLUME 11.7 fl (9.6-12.3); MONO # 0.6 10*3/uL (0.1-1.0); MONO % 6.2 % (3.0-9.0); NEUT # 8.6 10*3/uL (2.3-7.9); NEUT % 85.3 % (47.0-73.0); PLATELET COUNT AUTOMATED 239 10*3/uL (130-400); RED BLOOD COUNT 3.79 10*6/uL (4.50-5.90); RED CELL DISTRI WIDTH 16.4 % (0-14.5); WHITE BLOOD COUNT 10.1 10*3/uL (4.8-10.8)
[2020-03-22 12:02] LABS: ACT PARTIAL THROMBO TIME 27.8 SECONDS (20.0-32.1); INTERNATIONAL NORM RATIO 1.1 (2.0-3.5)
[2020-03-22 12:07] LABS: ALBUMIN 2.3 gm/dl (3.1-4.5); CREATININE 2.16 mg/dL (0.70-1.30); POTASSIUM 4.3 mmol/L (3.5-5.1); TOTAL PROTEIN 7.3 gm/dL (6.4-8.2)
[2020-03-22 12:11] LABS: TROPONIN I 3.8 ng/ml (<0.045)
[2020-03-22 12:51] LABS: ABG BASE EXCESS -2.5 mmol/L (-2.0-2.0); ARTERIAL BLOOD GAS PH 7.485 (7.35-7.45)
[2020-03-22 16:47] LABS: BILIRUBIN Negative (Negative); BLOOD Negative (Negative); CLARITY Clear (Clear); COLOR Yellow (Yellow); GLUCOSE Negative (Negative); KETONE Negative (Negative); LEUKO ESTERASE Negative (Negative); NITRITE Negative (Negative); PH 5.5 (4.5-8.0); SPECIFIC GRAVITY 1.015 (1.001-1.030)
[2020-03-22 17:04] LABS: BACTERIA TRACE; RBC 0-2 rbc/hpf (0-2)
[2020-03-22] MEDS ORDERED: LEVOTHYROXINE100 MC1 PO (18:45)
[2020-03-22] MEDS ORDERED: TRELEGY ELLIPT1 EACH INH (18:45)
[2020-03-22 19:48] LABS: ABG BASE EXCESS -1.3 mmol/L (-2.0-2.0); ARTERIAL BLOOD GAS PH 7.484 (7.35-7.45)
[2020-03-23] VITALS: BP 125/78
[2020-03-23 04:00] VITALS: BP 128/87
[2020-03-23 06:05] LABS: BASO % 0.1 % (0.0-1.0); EOS % 0.4 % (1.0-4.0); HEMATOCRIT 30.7 % (42.0-52.0); LYMPH # 0.7 10*3/uL (1.3-4.4); MEAN CELL VOLUME 88.2 fl (80.0-94.0); MEAN CORPUSCULAR HGB 27.9 pg (27.0-31.0); MEAN CORPUSCULAR HGB CONC 31.6 g/dl (33.0-37.0); MEAN PLATELET VOLUME 11.4 fl (9.6-12.3); MONO # 0.4 10*3/uL (0.1-1.0); MONO % 5.9 % (3.0-9.0); NEUT # 6.1 10*3/uL (2.3-7.9); NEUT % 83.1 % (47.0-73.0); PLATELET COUNT AUTOMATED 217 10*3/uL (130-400); RED BLOOD COUNT 3.48 10*6/uL (4.50-5.90); RED CELL DISTRI WIDTH 16.4 % (0-14.5); WHITE BLOOD COUNT 7.3 10*3/uL (4.8-10.8)
[2020-03-23 06:10] LABS: ALBUMIN 2.3 gm/dl (3.1-4.5); CREATININE 1.95 mg/dL (0.70-1.30); TOTAL PROTEIN 6.9 gm/dL (6.4-8.2)
[2020-03-23 06:15] LABS: THYROID STIM HORMONE (HS) 9.18 uIU/ml (0.358-4.75)
[2020-03-23 07:26] LABS: VITAMIN D, 25-HYDROXY 23.5 ng/mL (30-100)
[2020-03-23 07:39] LABS: ABG BASE EXCESS -1.3 mmol/L (-2.0-2.0); ARTERIAL BLOOD GAS PH 7.456 (7.35-7.45)
[2020-03-23 08:00] VITALS: BP 143/94
[2020-03-23 10:02] LABS: ABG BASE EXCESS -1.8 mmol/L (-2.0-2.0); ARTERIAL BLOOD GAS PH 7.467 (7.35-7.45)
[2020-03-23 10:08] LABS: CREATININE,URINE 135.5 mg/dL (Not Estab.)
[2020-03-23 12:00] VITALS: BP 126/83
[2020-03-23 16:00] VITALS: BP 131/80
[2020-03-23 20:00] VITALS: BP 132/77
[2020-03-24] VITALS: BP 128/81
[2020-03-24 04:00] VITALS: BP 144/93
[2020-03-24 04:22] LABS: BASO % 0.2 % (0.0-1.0); EOS # 0.1 10*3/uL (0.0-0.4); EOS % 1.2 % (1.0-4.0); HEMATOCRIT 32.4 % (42.0-52.0); LYMPH # 1.3 10*3/uL (1.3-4.4); LYMPH % 10.9 % (27.0-41.0); MEAN CELL VOLUME 89.5 fl (80.0-94.0); MEAN CORPUSCULAR HGB 27.9 pg (27.0-31.0); MEAN CORPUSCULAR HGB CONC 31.2 g/dl (33.0-37.0); MEAN PLATELET VOLUME 11.5 fl (9.6-12.3); MONO # 0.6 10*3/uL (0.1-1.0); MONO % 5.4 % (3.0-9.0); NEUT # 9.5 10*3/uL (2.3-7.9); NEUT % 81.5 % (47.0-73.0); PLATELET COUNT AUTOMATED 267 10*3/uL (130-400); RED BLOOD COUNT 3.62 10*6/uL (4.50-5.90); RED CELL DISTRI WIDTH 16.1 % (0-14.5); WHITE BLOOD COUNT 11.6 10*3/uL (4.8-10.8)
[2020-03-24 04:55] LABS: ALBUMIN 2.4 gm/dl (3.1-4.5); CREATININE 1.94 mg/dL (0.70-1.30); POTASSIUM 4.1 mmol/L (3.5-5.1); TOTAL PROTEIN 7.4 gm/dL (6.4-8.2)
[2020-03-24 07:47] LABS: ABG BASE EXCESS -1.8 mmol/L (-2.0-2.0); ARTERIAL BLOOD GAS PH 7.481 (7.35-7.45)
[2020-03-24 08:00] VITALS: BP 139/91
[2020-03-24 12:00] VITALS: BP 119/75
[2020-03-24 16:00] VITALS: BP 112/68
[2020-03-24 20:00] VITALS: BP 127/79
[2020-03-25] VITALS: BP 117/84
[2020-03-25 04:00] VITALS: BP 131/78
[2020-03-25 08:00] VITALS: BP 123/75
[2020-03-25 08:54] LABS: BASO % 0.1 % (0.0-1.0); EOS % 0.3 % (1.0-4.0); HEMATOCRIT 30.6 % (42.0-52.0); LYMPH # 1.1 10*3/uL (1.3-4.4); LYMPH % 9.6 % (27.0-41.0); MEAN CELL VOLUME 88.7 fl (80.0-94.0); MEAN CORPUSCULAR HGB 28.1 pg (27.0-31.0); MEAN CORPUSCULAR HGB CONC 31.7 g/dl (33.0-37.0); MEAN PLATELET VOLUME 10.8 fl (9.6-12.3); MONO # 0.7 10*3/uL (0.1-1.0); NEUT # 9.9 10*3/uL (2.3-7.9); NEUT % 83.2 % (47.0-73.0); NUCLEATED RED BLOOD CELL 0.2 % (0.0-0.0); PLATELET COUNT AUTOMATED 295 10*3/uL (130-400); RED BLOOD COUNT 3.45 10*6/uL (4.50-5.90); RED CELL DISTRI WIDTH 16.5 % (0-14.5); WHITE BLOOD COUNT 11.9 10*3/uL (4.8-10.8)
[2020-03-25 09:10] LABS: ALBUMIN 2.5 gm/dl (3.1-4.5); CREATININE 2.17 mg/dL (0.70-1.30); POTASSIUM 3.8 mmol/L (3.5-5.1); TOTAL PROTEIN 7.7 gm/dL (6.4-8.2)
[2020-03-25 10:00] LABS: ABG BASE EXCESS -1.5 mmol/L (-2.0-2.0); ARTERIAL BLOOD GAS PH 7.501 (7.35-7.45)
[2020-03-25 12:00] VITALS: BP 123/70
[2020-03-25 16:00] VITALS: BP 114/65
== END 2020-03-25 21:30 | DRG 189 ==
LOC: ED 11:32 → EDHOLD 13:32 → ICCU 13:32
PROVIDERS: Emergency Medicine; Internal Medicine Critical Care Medicine; Physician Assistant; Student in an Organized Health Care Education/Training Program; ADMIT Internal Medicine; ATTEND Internal Medicine
PROC: 5A09457 Assistance with Respiratory Ventilation, 24-96 Consecutive Hours, Continuous Positive Airway Pressure (ICD-10-PCS; principal; 2020-03-22)
PROC: 5A09357 Assistance with Respiratory Ventilation, Less than 24 Consecutive Hours, Continuous Positive Airway Pressure (ICD-10-PCS; 2020-03-24)
PROC: 5A0935A Assistance with Respiratory Ventilation, Less than 24 Consecutive Hours, High Flow/Velocity Cannula (ICD-10-PCS; 2020-03-24)
PROC: 5A09357 Assistance with Respiratory Ventilation, Less than 24 Consecutive Hours, Continuous Positive Airway Pressure (ICD-10-PCS; 2020-03-25)
DX: J96.21 Acute and chronic respiratory failure with hypoxia (principal); E43 Unspecified severe protein-calorie malnutrition; N17.9 Acute kidney failure, unspecified; E87.2 Acidosis; E87.3 Alkalosis; J84.9 Interstitial pulmonary disease, unspecified; E03.9 Hypothyroidism, unspecified; K21.9 Gastro-esophageal reflux disease without esophagitis; J44.9 Chronic obstructive pulmonary disease, unspecified; I25.10 Atherosclerotic heart disease of native coronary artery without angina pectoris; E78.5 Hyperlipidemia, unspecified; I12.9 Hypertensive chronic kidney disease with stage 1 through stage 4 chronic kidney disease, or unspecified chronic kidney disease; N18.30 Chronic kidney disease, stage 3 unspecified; E11.22 Type 2 diabetes mellitus with diabetic chronic kidney disease; R77.8 Other specified abnormalities of plasma proteins; E87.8 Other disorders of electrolyte and fluid balance, not elsewhere classified; E11.65 Type 2 diabetes mellitus with hyperglycemia; R79.89 Other specified abnormal findings of blood chemistry; R74.8 Abnormal levels of other serum enzymes; R80.9 Proteinuria, unspecified; G89.29 Other chronic pain; M54.9 Dorsalgia, unspecified; I27.20 Pulmonary hypertension, unspecified; R53.81 Other malaise; D64.9 Anemia, unspecified; Z20.822 Contact with and (suspected) exposure to COVID-19; I25.2 Old myocardial infarction; Z79.899 Other long term (current) drug therapy; Z90.49 Acquired absence of other specified parts of digestive tract; Z87.442 Personal history of urinary calculi; Z82.49 Family history of ischemic heart disease and other diseases of the circulatory system; Z79.82 Long term (current) use of aspirin; Z68.21 Body mass index [BMI] 21.0-21.9, adult